=== PATIENT | male | born 1975 | race Caucasian/White ===

== ENCOUNTER 2019-07-21 03:06 | Emergency (ER) | payer OTHER ==
[~2019-07-21] VITALS: Ht 172.7 cm; Wt 104.3 kg
[2019-07-21 03:10] VITALS: BP 132/94
--- NOTE | 2019-07-21 03:10 | NUR ---
TO BED # 04 AMBULATORY
--- NOTE | 2019-07-21 03:18 | NUR ---
Dr. Rodriguez examining patient.
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
[2019-07-21] MEDS ORDERED: LIDOCAINE/EPI 1% 1:100000 20 ML VIAL INJ ONE (03:25)
[2019-07-21] MEDS ORDERED: KETOROLAC 30 MG/ML VIAL IM ONE (03:30)
--- NOTE | 2019-07-21 03:41 | NUR ---
PT RECEIVED INFORMATION ON TDAP VACCINE, UNDERSTANDS AND SIGNS CONSENT. FRIENDS AT PT BEDSIDE AT THIS TIME.
--- NOTE | 2019-07-21 03:42 | NUR ---
DR PABLO AT BEDSIDE PERFORMING SUTURE PROCEDURE.
[2019-07-21] MEDS ORDERED: BACITRACIN OINT 500 UNITS/GM PKT TP ONE (04:15)
--- NOTE | 2019-07-21 04:21 | NUR ---
PT RESTING IN BED WITH EYES CLOSED. VSS. WILL CONTINUE TO MONITOR.
--- NOTE | 2019-07-21 04:28 | NUR ---
DCPatient discharged with v/s stable. Written and verbal after care instructions given and explained. Patient alert, oriented and verbalized understanding of instructions. Ambulatory with to home. All questions addressed prior to discharge. ID band removed. Patient advised to follow up with PMD. Rx of BACITRACIN OINTMENT given. Patient educated on indication of medication including possible reaction and side effects. Opportunity to ask questions provided and answered.
[2019-07-21 04:29] VITALS: BP 132/94
== END 2019-07-21 04:28 | disposition home or self-care (01) ==
LOC: MED 03:06
DX: S01.21XA Laceration without foreign body of nose, initial encounter (principal); W45.8XXA Other foreign body or object entering through skin, initial encounter; Y93.89 Activity, other specified; Y92.89 Other specified places as the place of occurrence of the external cause; Y99.8 Other external cause status
CPT/HCPCS: 12011; 90471; 90715; 96372; 99283; J1885; J2001

== ENCOUNTER 2023-12-25 19:04 | Emergency (ER) | payer SELFPAY ==
[~2023-12-25] VITALS: Ht 172.7 cm; Wt 113.4 kg
[2023-12-25 19:06] VITALS: BP 161/90; PULSE 92; RESP 18; TEMP 97.5
[2023-12-25] MEDS: KETOROLAC 30 MG/ML VIAL IM ONE (23:05)
[2023-12-25] MEDS: ALUMINUM HYD/MAG/SIMETHICONE 30 ML UDC PO ONE (23:06)
[2023-12-25] MEDS: FAMOTIDINE 20 MG TAB PO ONE (23:06)
[2023-12-25 23:09] LABS: BASOPHILS # (AUTO) 0.1 K/uL (0.00-0.22); EOSINOPHILS # (AUTO) 0.4 K/uL (0-0.4); EOSINOPHILS % (AUTO) 3.7 % (0.0-4.0); HEMATOCRIT 42.3 % (36-52); HEMOGLOBIN 14.8 g/dL (12.0-18.0); LYMPHOCYTES # (AUTO) 4.4 K/uL (2.0-11.5); LYMPHOCYTES % (AUTO) 41.9 % (20.5-51.1); MEAN CORPUSCULAR HEMOGLOBIN 31 pg (27-31); MEAN CORPUSCULAR HGB CONC 35 g/dL (33-37); MEAN CORPUSCULAR VOLUME 88.9 fL (80-94); MONOCYTES # (AUTO) 0.9 K/uL (0.8-1.0); MONOCYTES % (AUTO) 8.4 % (1.7-9.3); NEUTROPHILS # (AUTO) 4.7 K/uL (1.8-7.7); PLATELET COUNT (AUTO) 259 K/uL (140-450); RED BLOOD CELL COUNT(AUTO) 4.76 MIL/uL (4.20-6.10); RED CELL DISTRIBUTION WIDTH 12.6 % (11.6-13.7); WHITE BLOOD COUNT (AUTO) 10.4 K/uL (4.8-10.8)
[2023-12-25 23:11] LABS: APPEARANCE,URINE CLEAR (CLEAR); BILIRUBIN,URINE NEGATIVE (NEGATIVE); BLOOD, URINE NEGATIVE (NEGATIVE); COLOR,URINE YELLOW (YELLOW); LEUKOCYTE ESTERASE ,URINE NEGATIVE (NEGATIVE); NITRITE, URINE NEGATIVE (NEGATIVE); PH,URINE 6.5 (5.0-9.0); PROTEIN,URINE NEGATIVE (NEGATIVE); UGLUCOSE NEGATIVE (NEGATIVE); UROBILINOGEN,URINE 0.2 EU/dL (0.2 - 1)
[2023-12-25 23:30] LABS: ANION GAP 11.6 (8-16); CALCIUM 8.7 mg/dL (8.5-10.1); CREATININE 1.1 mg/dL (0.6-1.3); POTASSIUM 3.6 mmol/L (3.5-5.1)
[2023-12-25 23:34] LABS: ALANINE AMINOTRANSFERASE 45 U/L (12-78); ALBUMIN 3.8 g/dL (3.4-5.0); ALKALINE PHOSPHATASE 73 U/L (50-136); ASPARTATE AMINOTRANSFERASE 24 U/L (15-37); BILIRUBIN,DIRECT 0.2 mg/dL (0.0-0.3); LIPASE 68 U/L (16-77); TOTAL BILIRUBIN 1.1 mg/dL (0.0-1.0); TOTAL PROTEIN, SERUM 7.6 g/dL (6.4-8.2)
[2023-12-26] MEDS ORDERED: OMEP-303 PO (00:11)
[2023-12-26] MEDS ORDERED: ACET-10509 PO (00:11)
[2023-12-26] MEDS ORDERED: ALUM355S59 PO (00:11)
== END 2023-12-26 00:19 | disposition home or self-care (01) ==
LOC: MED 19:04
DX: R07.9 Chest pain, unspecified (principal); Z79.899 Other long term (current) drug therapy
CPT/HCPCS: 36415; 71045; 80048; 80076; 81003; 83690; 84484; 85025; 85379; 93005; 96372; 99285; J1885

== ENCOUNTER 2024-04-30 16:03 | Emergency (ER) | payer MEDICAID, OTHER ==
[~2024-04-30] VITALS: Ht 170.2 cm; Wt 119.4 kg
[~2024-04-30 16:03] MED LIST: ACET-10509 PO; ALUM355S59 PO; OMEP-303 PO
[2024-04-30 16:20] VITALS: BP 154/89; PULSE 74; RESP 16; TEMP 98.3; O2SAT 94
[2024-04-30] MEDS ORDERED: KETOROLAC 30 MG/ML VIAL IM ONE (17:50)
== END 2024-04-30 18:00 | disposition left against medical advice (07) ==
LOC: MED 16:03
DX: M79.601 Pain in right arm (principal); Z79.899 Other long term (current) drug therapy
CPT/HCPCS: 99281; J1885